=== PATIENT | female | born 1940 | race African-American/Black ===

== ENCOUNTER 2018-05-05 22:08 | Inpatient (IN) | payer MEDICAID, OTHER ==
[~2018-05-05] VITALS: Ht 165.1 cm; Wt 75.3 kg
[2018-05-05] MEDS ORDERED: FUROSEMIDE 40MG/4ML VIAL IV ONE (22:15)
[2018-05-05 23:15] LABS: BASOPHILS % 0.5 % (0.0-2.0); EOSINOPHILS % 0.3 % (0.0-5.0); HEMATOCRIT. 36.9 % (36.0-48.0); HEMOGLOBIN. 11.7 g/dL (12.0-16.0); LYMPHOCYTES % 22.7 % (20.0-50.0); MEAN CORPUSCULAR HEMOGLOBIN 24.2 pg (28.0-32.0); MEAN CORPUSCULAR VOLUME 76.3 fL (81.0-99.0); MEAN PLATELET VOLUME 9.7 fl (7.4-10.4); MONOCYTES % 5.6 % (2.0-8.0); NEUTROPHILS % 70.9 % (40.0-76.0); PLATELET 122 x1000/uL (130-400); RED BLOOD CELL COUNT 4.84 mill/uL (4.2-5.4); RED CELL DISTRIBUTION WIDTH 15.1 % (11.6-14.6)
[2018-05-05 23:25] LABS: CHLORIDE 107 mEq/L (98-107); INR 1.2; PARTIAL THROMBOPLASTIN TIME 25.1 sec (23.4-31.0); PROTHROMBIN TIME 12.3 sec (9.1-11.1)
[2018-05-05] MEDS ORDERED: ASPIRIN 325MG TABLET PO SCH (23:45)
[2018-05-05] MEDS ORDERED: POTASSIUM CHLORIDE 20MEQ TABLET SR PO SCH (23:45)
[2018-05-06] VITALS (12 sets, daily range): BP systolic 117–165; BP diastolic 54–109
[2018-05-06] MEDS ORDERED: IPRATROPIUM/ALBUTEROL 0.5-3(2.5)MG/3ML NEB INH PRN (03:00)
[2018-05-06] MEDS ORDERED: ONDANSETRON HCL 4MG/2ML INJ IV PRN (03:00)
[2018-05-06] MEDS ORDERED: DEXTROSE 50% WATER 50ML SYRINGE IV PRN (03:00)
[2018-05-06] MEDS ORDERED: FUROSEMIDE 40MG/4ML VIAL IVP SCH (03:00)
[2018-05-06] MEDS ORDERED: LORAZEPAM 0.5MG TABLET PO PRN (03:00)
[2018-05-06] MEDS ORDERED: ACETAMINOPHEN 325MG TABLET PO PRN (03:00)
[2018-05-06] MEDS ORDERED: DIPHENHYDRAMINE 50MG/ML VIAL IV PRN (03:00)
[2018-05-06] MEDS ORDERED: DILTIAZEM HCL 125 MG in DEXT 5% WATER 100 ML IV PRN (03:30)
[2018-05-06] MEDS: DILTIAZEM HCL 30MG TABLET PO SCH ×4 (05:28→20:19)
[2018-05-06] MEDS: SODIUM CHLORIDE 0.9% INJ 3ML FLUSH IVF SCH ×3 (05:28→22:26)
[2018-05-06 07:20] LABS: METHADONE URINE SCREEN NEGATIVE (NEGATIVE); OPIATES URINE SCREEN NEGATIVE (NEGATIVE); PHENCYCLIDINE URINE SCREEN NEGATIVE (NEGATIVE)
[2018-05-06 07:21] LABS: *AMPHETAMINES SCREEN URINE NEGATIVE (NEGATIVE); *BARBITURATES SCREEN URINE NEGATIVE (NEGATIVE); *BENZODIAZEPINES SCREEN URINE NEGATIVE (NEGATIVE); *COCAINE SCREEN URINE NEGATIVE (NEGATIVE); CANNABINOID URINE SCREEN NEGATIVE (NEGATIVE)
[2018-05-06] MEDS: INSULIN LISPRO 100 UNITS/ML SUBCUT SCH ×4 (08:00→20:30)
[2018-05-06] MEDS: FUROSEMIDE 40MG/4ML VIAL IVP SCH ×2 (08:01→20:18)
[2018-05-06] MEDS: CARVEDILOL 6.25 MG TABLET PO SCH ×2 (08:04→08:51)
[2018-05-06] MEDS: ASPIRIN 81MG EC TABLET PO SCH ×2 (08:05→08:50)
[2018-05-06] MEDS: POTASSIUM CHLORIDE 20MEQ TABLET SR PO SCH ×4 (08:05→17:22)
[2018-05-06] MEDS: BLOOD SUGAR DIAGNOSTIC STRIP TEST SCH ×4 (08:16→20:28)
[2018-05-06] MEDS: IPRATROPIUM/ALBUTEROL 0.5-3(2.5)MG/3ML NEB HHN SCH ×3 (08:30→20:19)
[2018-05-06] MEDS: MAGNESIUM/ALUMINUM HYDROXIDE/SIMETHICONE 30ML UDC PO PRN (12:00)
[2018-05-06] MEDS ORDERED: DIGOXIN 250MCG TABLET PO ONE (14:00)
[2018-05-06] MEDS ORDERED: CARVEDILOL 6.25 MG TABLET PO NR (14:15)
[2018-05-06] MEDS: LISINOPRIL 10MG TABLET PO SCH ×2 (14:33→20:20)
[2018-05-06] MEDS ORDERED: FURO-152 MT (14:43)
[2018-05-06] MEDS ORDERED: POTA20TA82 MT (14:43)
[2018-05-06] MEDS ORDERED: RIVA20TA MT (14:51)
[2018-05-06] MEDS ORDERED: DIGO250T81 MT (14:51)
[2018-05-06] MEDS ORDERED: FAMO20TA8 MT (14:51)
[2018-05-06] MEDS ORDERED: COR25 MT (14:51)
[2018-05-06] MEDS ORDERED: LISI-604 MT (14:51)
[2018-05-06] MEDS ORDERED: DIGOXIN 250MCG TABLET PO NR ×2 (16:00→20:00)
[2018-05-06 17:18] LABS: CHLORIDE 109 mEq/L (98-107)
[2018-05-06] MEDS: RIVAROXABAN 15 MG TABLET PO SCH (17:21)
[2018-05-06 17:47] LABS: BG BASE EXCESS 5.1 mmol/L (-2.0-2.0); BG CARBOXYHEMOGLOBIN 1.1 % (0.5-1.5); BG DEOXYHEMOGLOBIN 6.1 % (0.0-5.0); BG FRACTION INSPIRED OXYGEN 21; BG HCO3 ACT 28.8 mmol/L (22.0-26.0); BG METHEMOGLOBIN 0.2 % (0.0-1.5); BG OXYGEN SATURATION 93.8 % (92.0-98.5); BG OXYHEMOGLOBIN 92.6 % (94.0-97.0); BG PCO2 39.2 mmHg (35.0-45.0); BG PH 7.484 (7.350-7.450); BG PO2 71.2 mmHg (75.0-100.0); BG SAMPLE SITE RIGHT BRACHIAL; BG TOTAL HEMOGLOBIN 12.3 g/dL (12.0-18.0); BG VENT MODE ROOM AIR
[2018-05-06] MEDS ORDERED: DILTIAZEM HCL 60MG TABLET PO SCH (18:00)
[2018-05-06] MEDS: CARVEDILOL 12.5MG TABLET PO SCH (20:20)
[2018-05-07] VITALS (12 sets, daily range): BP systolic 113–148; BP diastolic 68–114
[2018-05-07] MEDS: IPRATROPIUM/ALBUTEROL 0.5-3(2.5)MG/3ML NEB HHN SCH ×2 (02:17→21:38)
[2018-05-07] MEDS: CLONIDINE 0.1MG TABLET PO PRN (05:30)
[2018-05-07 05:50] LABS: CHLORIDE 107 mEq/L (98-107)
[2018-05-07] MEDS: SODIUM CHLORIDE 0.9% INJ 3ML FLUSH IVF SCH ×3 (06:41→21:32)
[2018-05-07] MEDS: BLOOD SUGAR DIAGNOSTIC STRIP TEST SCH ×4 (07:30→21:00)
[2018-05-07] MEDS: INSULIN LISPRO 100 UNITS/ML SUBCUT SCH ×4 (08:00→22:14)
[2018-05-07] MEDS: FUROSEMIDE 40MG/4ML VIAL IVP SCH ×2 (09:29→21:25)
[2018-05-07] MEDS: POTASSIUM CHLORIDE 20MEQ TABLET SR PO SCH ×3 (09:30→18:29)
[2018-05-07] MEDS: ASPIRIN 81MG EC TABLET PO SCH (09:30)
[2018-05-07] MEDS: DILTIAZEM HCL 30MG TABLET PO SCH (09:30)
[2018-05-07] MEDS: CARVEDILOL 12.5MG TABLET PO SCH (09:31)
[2018-05-07] MEDS: MAGNESIUM/ALUMINUM HYDROXIDE/SIMETHICONE 30ML UDC PO PRN (09:31)
[2018-05-07] MEDS: LISINOPRIL 10MG TABLET PO SCH ×2 (09:31→21:31)
[2018-05-07] MEDS: RIVAROXABAN 15 MG TABLET PO SCH (18:29)
[2018-05-07] MEDS: CARVEDILOL 25MG TABLET PO SCH (21:30)
[2018-05-08] VITALS (11 sets, daily range): BP systolic 115–163; BP diastolic 72–116
[2018-05-08] MEDS: IPRATROPIUM/ALBUTEROL 0.5-3(2.5)MG/3ML NEB HHN SCH ×4 (02:46→20:49)
[2018-05-08] MEDS: SODIUM CHLORIDE 0.9% INJ 3ML FLUSH IVF SCH ×2 (06:15→16:57)
[2018-05-08] MEDS: BLOOD SUGAR DIAGNOSTIC STRIP TEST SCH ×2 (07:50→12:48)
[2018-05-08] MEDS: INSULIN LISPRO 100 UNITS/ML SUBCUT SCH ×2 (08:00→12:54)
[2018-05-08] MEDS ORDERED: DIGOXIN 125MCG TABLET PO SCH (09:00)
[2018-05-08] MEDS: LISINOPRIL 10MG TABLET PO SCH (10:07)
[2018-05-08] MEDS: CARVEDILOL 25MG TABLET PO SCH (10:08)
[2018-05-08] MEDS: FUROSEMIDE 40MG/4ML VIAL IVP SCH (10:08)
[2018-05-08] MEDS: POTASSIUM CHLORIDE 20MEQ TABLET SR PO SCH ×3 (10:08→17:08)
[2018-05-08] MEDS: RIVAROXABAN 15 MG TABLET PO SCH (17:08)
[2018-05-08] MEDS: CLONIDINE 0.1MG TABLET PO PRN (17:08)
== END 2018-05-08 18:30 | disposition home or self-care (01) | DRG 133 ==
LOC: ER 22:08 → 5EST 23:46 → EDBEDREQ 23:48 → EDBEDREQSVC 23:48 → EDBEDREQTM 23:48 → ENRESERV 05-06 01:04
PROVIDERS: ADMIT Internal Medicine; ATTEND Internal Medicine
PROC: 5A09357 Assistance with Respiratory Ventilation, Less than 24 Consecutive Hours, Continuous Positive Airway Pressure (ICD-10-PCS; principal; 2018-05-05)
DX: J96.00 Acute respiratory failure, unspecified whether with hypoxia or hypercapnia (principal); I50.23 Acute on chronic systolic (congestive) heart failure; I27.20 Pulmonary hypertension, unspecified; I48.2 Chronic atrial fibrillation; E44.1 Mild protein-calorie malnutrition; I11.0 Hypertensive heart disease with heart failure; R73.9 Hyperglycemia, unspecified; E87.6 Hypokalemia; Z68.27 Body mass index [BMI] 27.0-27.9, adult
CPT/HCPCS: 36415; 36600; 71045; 80048; 80162; 80305; 82375; 82805; 82962; 83036; 83880; 84484; 93005; 93306; 94640; 94660; 96374; 97162; 99285; J1815; J1940; J7050; J7620